=== PATIENT | female | born 1960 | race Caucasian/White ===

== ENCOUNTER → 2017-03-26 | Outpatient (CLI) | payer OTHER | LOC: M RAD 10:48 | DX: Z12.31 Encounter for screening mammogram for malignant neoplasm of breast (principal) | CPT/HCPCS: 77067 ==

== ENCOUNTER → 2017-04-06 | Outpatient (REF) | payer OTHER, MEDICAID ==
[2017-04-06 14:15] LABS: TOTAL 25(OH) VITAMIN D 23.7 NG/ML (30.0-100.0)
[2017-04-06 14:26] LABS: BASO # 0.1 10^3/uL (0.0-0.2); BASO % 1.1 % (0.0-1.0); EOS # 0.2 10^3/uL (0.0-0.50); EOS % 2.9 % (0.0-3.0); HEMATOCRIT 42.6 % (36.0-47.0); HEMOGLOBIN 14.3 g/dl (12.0-16.0); IMMATURE GRANULOCYTE % 0.2 % (0-3.0); LYMPH # 1.9 10^3/uL (1.5-4.5); LYMPH % 35.1 % (24.0-44.0); MEAN CORPUSCULAR HEMOGLOBIN 31.3 pg (27.0-33.0); MEAN CORPUSCULAR HGB CONC 33.6 g/dl (32.0-36.5); MEAN CORPUSCULAR VOLUME 93.2 fl (80.0-96.0); MONO # 0.4 10^3/uL (0.0-0.8); MONO % 7.6 % (0.0-5.0); NEUTROPHILS # 2.9 10^3/uL (1.8-7.7); NEUTROPHILS % 53.1 % (36.0-66.0); PLATELET COUNT, AUTOMATED 333 10^3/uL (150-450); RED BLOOD COUNT 4.57 10^6/uL (4.00-5.40); RED CELL DISTRIBUTION WIDTH 12.8 % (11.5-14.5); WHITE BLOOD COUNT 5.5 10^3/uL (4.0-10.0)
[2017-04-06 14:27] LABS: ALBUMIN/GLOBULIN RATIO 1.14 (1.00-1.93); ALKALINE PHOSPHATASE 87 U/L (45-117); ALT/SGPT 38 U/L (12-78); ANION GAP 8 MEQ/L (8-16); AST/SGOT 21 U/L (7-37); BILIRUBIN,TOTAL 0.5 MG/DL (0.2-1.0); BLOOD UREA NITROGEN 12 MG/DL (7-18); CALCIUM LEVEL 9.1 MG/DL (8.5-10.1); CARBON DIOXIDE LEVEL 29 MEQ/L (21-32); CHLORIDE LEVEL 107 MEQ/L (98-107); CHOLESTEROL LEVEL 278 MG/DL (<200); CREATININE FOR GFR 0.71 MG/DL (0.55-1.30); GLOMERULAR FILTRATION RATE > 60.0 (>51); GLUCOSE, FASTING 83 MG/DL (70-100); HDL CHOLESTEROL 50 MG/DL (>40); LDL CHOLESTEROL 197.2 MG/DL (<100); NON-HDL-C 228 MG/DL; POTASSIUM SERUM 4.3 MEQ/L (3.5-5.1); SODIUM LEVEL 144 MEQ/L (136-145); TOTAL PROTEIN 7.5 GM/DL (6.4-8.2); TRIGLYCERIDES LEVEL 154 MG/DL (<150)
[2017-04-06 14:53] LABS: HEPATITIS C VIRUS ABY INDEX 0.1 INDEX (<0.8)
[2017-04-06 14:54] LABS: HIV 1&2 SCREEN CENTAUR NEGATIVE (NEGATIVE)
[2017-04-08 08:07] LABS: LEAD BLOOD ADULT 1 ug/dL (0-19)
== END ==
LOC: M LAB REF 13:21
DX: Z13.9 Encounter for screening, unspecified (principal); E78.5 Hyperlipidemia, unspecified; E03.9 Hypothyroidism, unspecified; K59.09 Other constipation
CPT/HCPCS: 83655

== ENCOUNTER → 2017-04-23 | Outpatient (REF) | payer OTHER, MEDICAID ==
[2017-04-23 19:06] LABS: ERYTHROCYTE SEDIMENTATION RATE 21 mm/hr (0-30)
== END ==
LOC: M LAB REF 17:27
DX: M79.7 Fibromyalgia (principal)
CPT/HCPCS: 85652

== ENCOUNTER → 2017-05-01 | Outpatient (REF) | payer OTHER ==
[2017-05-01 18:08] LABS: TOTAL T3 100.5 NG/DL (60.0-181.0)
[2017-05-01 18:08] LABS: TESTOSTERONE 19 NG/DL (14-76)
[2017-05-01 18:09] LABS: C REACTIVE PROTEIN QUANTITATIV < 0.30 MG/DL (0.00-0.30); FERRITIN 122 NG/ML (8-252); FOLLICLE STIMULATING HORMONE 81.1 mIU/mL; FREE T4 0.96 NG/DL (0.76-1.46); IRON (FE) 96 UG/DL (50-170); LUTEINIZING HORMONE 27.9 mIU/mL
[2017-05-06 08:40] LABS: ESTROGENS TOTAL 43 pg/mL (.)
== END ==
LOC: M LAB REF 16:56
DX: R23.2 Flushing (principal); M79.7 Fibromyalgia; E03.9 Hypothyroidism, unspecified
CPT/HCPCS: 83001

== ENCOUNTER 2017-05-08 06:47 | Day surgery (SDC) | payer OTHER ==
[2017-05-08] MEDS ORDERED: LIDOCAINE 2% INJ 100 MG/5 ML SDV (FOR ANES.) As Ordered (07:04)
[2017-05-08] MEDS ORDERED: PROPOFOL 200 MG/20 ML VIAL As Ordered ×2 (07:04)
[2017-05-08] MEDS: NS 1,000 ML IV (07:15)
== END 2017-05-08 09:40 | disposition home or self-care (01) ==
LOC: M OPP 06:47
DX: Z12.11 Encounter for screening for malignant neoplasm of colon (principal); D12.3 Benign neoplasm of transverse colon; K64.8 Other hemorrhoids; E78.5 Hyperlipidemia, unspecified; E03.9 Hypothyroidism, unspecified; M79.7 Fibromyalgia; J45.909 Unspecified asthma, uncomplicated; R06.83 Snoring; J32.9 Chronic sinusitis, unspecified; H04.129 Dry eye syndrome of unspecified lacrimal gland; Z91.040 Latex allergy status; Z88.2 Allergy status to sulfonamides; Z80.8 Family history of malignant neoplasm of other organs or systems; Z80.42 Family history of malignant neoplasm of prostate; Z80.1 Family history of malignant neoplasm of trachea, bronchus and lung; Z80.0 Family history of malignant neoplasm of digestive organs; Z80.7 Family history of other malignant neoplasms of lymphoid, hematopoietic and related tissues
CPT/HCPCS: 45385

== ENCOUNTER → 2017-05-11 | Outpatient (REF) | payer OTHER ==
[2017-05-11 13:49] LABS: APPEARANCE, URINE CLEAR (CLEAR); BACTERIA, URINE AUTO 1+ (NEGATIVE); BILIRUBIN, URINE AUTO NEGATIVE (NEGATIVE); BLOOD, URINE BLOOD 2+ (NEGATIVE); COLOR, URINE COLORLESS (YELLOW); GLUCOSE, URINE (UA) AUTO NEGATIVE (NEGATIVE); KETONE, URINE AUTO NEGATIVE (NEGATIVE); LEUKOCYTE ESTERASE, URINE AUTO 3+ (NEGATIVE); NITRITE, URINE AUTO NEGATIVE (NEGATIVE); PROTEIN, URINE AUTO NEGATIVE (NEGATIVE); RBC, URINE AUTO 1 /HPF (0-3); SPECIFIC GRAVITY URINE AUTO 1.001 (1.002-1.035); SQUAMOUS EPITHELIAL CELL UR AU 0 /HPF (0-6); UROBILINOGEN, URINE AUTO 0.2 mg/dL (0.0-2.0); WBC, URINE AUTO 3 /HPF (0-3)
== END ==
LOC: M LAB REF 13:18
DX: R30.0 Dysuria (principal)

== ENCOUNTER → 2017-06-12 | Outpatient (REF) | payer OTHER, MEDICARE, MEDICAID ==
[2017-06-12 17:36] LABS: HYALINE CAST, URINE NONE SEEN /lpf (0-1); MICROSCOPIC EXAM PERFORMED; SQUAMOUS EPITHELIAL CELL URINE SMALL AMOUNT /hpf (SMALL AMT)
[2017-06-12 17:37] LABS: BACTERIA, URINE LARGE AMOUNT
== END ==
LOC: M SMT 16:55
DX: N20.0 Calculus of kidney (principal)
CPT/HCPCS: 81015

== ENCOUNTER → 2017-06-22 | Outpatient (CLI) | payer OTHER, MEDICAID, MEDICARE | LOC: M RAD 10:30 | DX: N20.0 Calculus of kidney (principal) | CPT/HCPCS: 76856 ==

== ENCOUNTER → 2017-07-16 | Outpatient (CLI) | payer OTHER, MEDICAID | LOC: M RAD 13:17 | DX: M20.099 Other deformity of finger(s), unspecified finger(s) (principal); M79.642 Pain in left hand; M79.641 Pain in right hand | CPT/HCPCS: 73130 ==

== ENCOUNTER → 2017-08-24 | Outpatient (REF) | payer OTHER, MEDICAID ==
[2017-08-24 14:01] LABS: TOTAL 25(OH) VITAMIN D 30.9 NG/ML (30.0-100.0)
[2017-08-24 14:07] LABS: CPK CREATINE PHOSPHOKINASE 462 U/L (26-192)
[2017-08-24 14:07] LABS: MAGNESIUM LEVEL 2.1 MG/DL (1.8-2.4)
[2017-08-25 15:00] LABS: ANTI JO-1 ANTIBODIES <0.2 AI (0.0-0.9)
== END ==
LOC: M LAB REF 13:23
DX: M79.1 Myalgia (principal); E55.9 Vitamin D deficiency, unspecified
CPT/HCPCS: 82550

== ENCOUNTER → 2017-09-15 | Outpatient (CLI) | payer OTHER ==
[~2017-09-15] MED LIST: MOM 30ML SUSPENSION UDC PO
[2017-09-15 14:09] LABS: HEMATOCRIT 42.4 % (36.0-47.0); HEMOGLOBIN 14.2 g/dl (12.0-15.5); MEAN CORPUSCULAR HEMOGLOBIN 32.1 pg (27.0-33.0); MEAN CORPUSCULAR HGB CONC 33.5 g/dl (32.0-36.5); MEAN CORPUSCULAR VOLUME 95.7 fl (80.0-96.0); PLATELET COUNT, AUTOMATED 314 10^3/uL (150-450); RED BLOOD COUNT 4.43 10^6/uL (4.00-5.40); RED CELL DISTRIBUTION WIDTH 12.5 % (11.5-14.5); WHITE BLOOD COUNT 8.1 10^3/uL (4.0-10.0)
[2017-09-15 14:16] LABS: AMORPHOUS SEDIMENT LARGE (NEGATIVE); BACTERIA, URINE AUTO 2+ (NEGATIVE); RBC, URINE AUTO 13 /HPF (0-3); SQUAMOUS EPITHELIAL CELL UR AU 0 /HPF (0-6); WBC, URINE AUTO 0 /HPF (0-3)
[2017-09-15 14:39] LABS: ANION GAP 6 MEQ/L (8-16); BLOOD UREA NITROGEN 17 MG/DL (7-18); CALCIUM LEVEL 9.2 MG/DL (8.5-10.1); CARBON DIOXIDE LEVEL 33 MEQ/L (21-32); CHLORIDE LEVEL 108 MEQ/L (98-107); CREATININE FOR GFR 0.85 MG/DL (0.55-1.30); GLOMERULAR FILTRATION RATE > 60.0 (>51); GLUCOSE, FASTING 97 MG/DL (70-100); POTASSIUM SERUM 4.1 MEQ/L (3.5-5.1); SODIUM LEVEL 147 MEQ/L (136-145)
== END ==
LOC: M LAB 13:28
DX: Z01.812 Encounter for preprocedural laboratory examination (principal)
CPT/HCPCS: 80048

== ENCOUNTER 2017-09-23 06:08 | Day surgery (SDC) | payer OTHER ==
[~2017-09-23 06:08] MED LIST changes: +LR 1,000 ML IV; -MOM 30ML SUSPENSION UDC PO
[2017-09-23] MEDS ORDERED: ceFAZolin 2 GM/D5W 50 ML IV BAG (J0690 PER 500MG) As Ordered (06:41)
[2017-09-23] MEDS ORDERED: PROPOFOL 200 MG/20 ML VIAL As Ordered (06:51)
[2017-09-23] MEDS ORDERED: ROCURONIUM BROMIDE 50 MG/5 ML VIAL As Ordered (06:51)
[2017-09-23] MEDS ORDERED: LIDOCAINE 2% INJ 100 MG/5 ML SDV (FOR ANES.) As Ordered (06:51)
[2017-09-23] MEDS ORDERED: fentaNYL 100 MCG/2 ML INJECTION (J3010) As Ordered (06:56)
[2017-09-23] MEDS ORDERED: MIDAZOLAM INJ 2 MG/2 ML VIAL (J2250) As Ordered (07:23)
[2017-09-23] MEDS ORDERED: fentaNYL 250 MCG/5 ML INJECTION (J3010) As Ordered (07:48)
[2017-09-23] MEDS ORDERED: ONDANSETRON 4MG/2ML VIAL (J2405) As Ordered ×2 (07:58)
[2017-09-23] MEDS ORDERED: dexameTHASONE 4 MG/ML 1ML VIAL (J1100) As Ordered ×2 (07:58)
[2017-09-23] MEDS ORDERED: SUGAMMADEX SODIUM 500 MG/5 ML VIAL (BRIDION) As Ordered (07:59)
[2017-09-23] MEDS: BACITRACIN PWD 50,000 UNITS VIAL As Ordered (08:40)
[2017-09-23] MEDS: METHYLENE BLUE 0.5% (5MG/ML) 10 ML AMP (PROVAYBLUE)(Q9968 PER 1MG) As Ordered (09:14)
[2017-09-23] MEDS: BUPIVACAINE/EPIN 0.25% 30 ML VIAL As Ordered (10:15)
[2017-09-23] MEDS: BACITRACIN OINT 30GM As Ordered (10:43)
[2017-09-23] MEDS ORDERED: NAPROXEN 250 MG TAB PO (10:45)
[2017-09-23] MEDS ORDERED: ACETAMINOPHEN 650MG ER TAB (TYLENOL ARTHRITIS) PO (10:45)
[2017-09-23] MEDS ORDERED: PERCOCET 5MG/325MG TAB PO (11:15)
[2017-09-23] MEDS: LR 1,000 ML IV (11:15)
[2017-09-23] MEDS ORDERED: HYDROMORPHONE HCL 0.5 MG/ 0.5 ML SYRINGE (J1170 PER 1) IV (11:15)
[2017-09-23] MEDS ORDERED: ONDANSETRON 4MG/2ML VIAL (J2405) IV (11:15)
[2017-09-23] MEDS ORDERED: fentaNYL 100 MCG/2 ML INJECTION (J3010) IV (11:15)
[2017-09-23] MEDS: ASCORBIC ACID 500 MG TAB PO ×2 (13:46→20:37)
[2017-09-23] MEDS: VITAMIN D 1,000 INTERNATIONAL UNITS TABLET PO ×2 (13:47→20:37)
[2017-09-23] MEDS: CALCIUM/VITAMIN D 500 MG TAB PO (13:47)
[2017-09-23] MEDS: PERCOCET 5MG/325MG TAB PO ×2 (13:50→20:39)
[2017-09-23] MEDS: CIPROFLOXACIN 250 MG TAB PO (18:40)
[2017-09-23] MEDS: ATORVASTATIN 20 MG TAB PO (20:37)
[2017-09-23] MEDS: FLUTICASONE PROP 0.05% NASAL SPRAY 16 GM (FLONASE) (20:39)
[2017-09-24] MEDS: CIPROFLOXACIN 250 MG TAB PO (05:21)
[2017-09-24 06:18] LABS: HEMOGLOBIN 12.5 g/dl (12.0-15.5); MEAN CORPUSCULAR HEMOGLOBIN 31.4 pg (27.0-33.0); MEAN CORPUSCULAR HGB CONC 33.8 g/dl (32.0-36.5); PLATELET COUNT, AUTOMATED 288 10^3/uL (150-450); RED BLOOD COUNT 3.98 10^6/uL (4.00-5.40); RED CELL DISTRIBUTION WIDTH 12.6 % (11.5-14.5); WHITE BLOOD COUNT 17.1 10^3/uL (4.0-10.0)
[2017-09-24 06:40] LABS: ANION GAP 6 MEQ/L (8-16); BLOOD UREA NITROGEN 10 MG/DL (7-18); CALCIUM LEVEL 8.5 MG/DL (8.5-10.1); CARBON DIOXIDE LEVEL 30 MEQ/L (21-32); CHLORIDE LEVEL 107 MEQ/L (98-107); GLOMERULAR FILTRATION RATE > 60.0 (>51); GLUCOSE, FASTING 108 MG/DL (70-100); SODIUM LEVEL 143 MEQ/L (136-145)
[2017-09-24] MEDS: DULoxetine 30 MG CAP (CYMBALTA) PO (08:31)
[2017-09-24] MEDS: CALCIUM/VITAMIN D 500 MG TAB PO (08:31)
[2017-09-24] MEDS: VITAMIN D 1,000 INTERNATIONAL UNITS TABLET PO (08:31)
[2017-09-24] MEDS: MONTELUKAST 10 MG TAB PO (08:31)
[2017-09-24] MEDS: ASCORBIC ACID 500 MG TAB PO (08:31)
[2017-09-24] MEDS: POLYVINYL ALCOHOL OPHTH SOLN 15 ML(LIQUITEARS) OU (08:32)
[2017-09-24] MEDS: PERCOCET 5MG/325MG TAB PO (08:32)
[2017-09-24] MEDS ORDERED: PERCOCET 5MG/325MG TAB PO (09:30)
== END 2017-09-24 12:10 | disposition home or self-care (01) ==
LOC: M SDC 06:08 → M MSPAV 12:53
DX: N81.3 Complete uterovaginal prolapse (principal); N39.46 Mixed incontinence; D30.3 Benign neoplasm of bladder; N76.5 Ulceration of vagina; E78.00 Pure hypercholesterolemia, unspecified; E03.9 Hypothyroidism, unspecified; M79.7 Fibromyalgia; F41.9 Anxiety disorder, unspecified; F32.9 Major depressive disorder, single episode, unspecified; R06.83 Snoring; J32.9 Chronic sinusitis, unspecified; Z88.2 Allergy status to sulfonamides; Z91.040 Latex allergy status; Z79.899 Other long term (current) drug therapy; Z90.710 Acquired absence of both cervix and uterus; Z87.440 Personal history of urinary (tract) infections; Z98.51 Tubal ligation status
CPT/HCPCS: 57260

== ENCOUNTER → 2017-10-30 | Outpatient (REF) | payer OTHER, MEDICAID ==
[2017-10-30 18:43] LABS: ALBUMIN 3.8 GM/DL (3.2-5.2); ALBUMIN/GLOBULIN RATIO 1.09 (1.00-1.93); ALKALINE PHOSPHATASE 101 U/L (45-117); ALT/SGPT 43 U/L (12-78); ANION GAP 6 MEQ/L (8-16); AST/SGOT 25 U/L (7-37); BILIRUBIN,TOTAL 0.5 MG/DL (0.2-1.0); BLOOD UREA NITROGEN 15 MG/DL (7-18); CALCIUM LEVEL 9.7 MG/DL (8.5-10.1); CARBON DIOXIDE LEVEL 31 MEQ/L (21-32); CHLORIDE LEVEL 105 MEQ/L (98-107); CPK CREATINE PHOSPHOKINASE 385 U/L (26-192); GLOMERULAR FILTRATION RATE > 60.0 (>51); GLUCOSE, FASTING 86 MG/DL (70-100); POTASSIUM SERUM 4.9 MEQ/L (3.5-5.1); SODIUM LEVEL 142 MEQ/L (136-145); TOTAL PROTEIN 7.3 GM/DL (6.4-8.2)
[2017-10-30 18:44] LABS: CREATININE,RANDOM URINE 30.7 MG/DL; TOTAL PROTEIN,RANDOM URINE 7.1 MG/DL (0.0-12.0)
[2017-10-30 18:52] LABS: BASO # 0.1 10^3/uL (0.0-0.2); BASO % 0.8 % (0.0-1.0); EOS # 0.2 10^3/uL (0.0-0.50); EOS % 2.5 % (0.0-3.0); HEMATOCRIT 42.8 % (36.0-47.0); IMMATURE GRANULOCYTE % 0.1 % (0-3.0); LYMPH # 2.2 10^3/uL (1.5-4.5); LYMPH % 29.2 % (24.0-44.0); MEAN CORPUSCULAR HEMOGLOBIN 31.5 pg (27.0-33.0); MEAN CORPUSCULAR HGB CONC 32.7 g/dl (32.0-36.5); MEAN CORPUSCULAR VOLUME 96.4 fl (80.0-96.0); MONO # 0.7 10^3/uL (0.0-0.8); MONO % 8.6 % (0.0-5.0); NEUTROPHILS # 4.4 10^3/uL (1.8-7.7); NEUTROPHILS % 58.8 % (36.0-66.0); PLATELET COUNT, AUTOMATED 318 10^3/uL (150-450); RED BLOOD COUNT 4.44 10^6/uL (4.00-5.40); RED CELL DISTRIBUTION WIDTH 12.6 % (11.5-14.5); WHITE BLOOD COUNT 7.5 10^3/uL (4.0-10.0)
[2017-10-30 18:58] LABS: AMORPHOUS SEDIMENT SMALL (NEGATIVE); APPEARANCE, URINE CLOUDY (CLEAR); BACTERIA, URINE AUTO NEGATIVE (NEGATIVE); BILIRUBIN, URINE AUTO NEGATIVE (NEGATIVE); BLOOD, URINE BLOOD NEGATIVE (NEGATIVE); COLOR, URINE YELLOW (YELLOW); GLUCOSE, URINE (UA) AUTO NEGATIVE (NEGATIVE); KETONE, URINE AUTO NEGATIVE (NEGATIVE); LEUKOCYTE ESTERASE, URINE AUTO NEGATIVE (NEGATIVE); NITRITE, URINE AUTO NEGATIVE (NEGATIVE); PROTEIN, URINE AUTO NEGATIVE (NEGATIVE); RBC, URINE AUTO 2 /HPF (0-3); SPECIFIC GRAVITY URINE AUTO 1.009 (1.002-1.035); SQUAMOUS EPITHELIAL CELL UR AU 0 /HPF (0-6); UROBILINOGEN, URINE AUTO 0.2 mg/dL (0.0-2.0); WBC, URINE AUTO 1 /HPF (0-3)
[2017-11-04 00:06] LABS: ANA (HEP2) Negative (.); ANTI DOUBLE STRAND-DNA AB 1 IU/mL (0-9); RNP ANTIBODY < 0.2 AI (0.0-0.9); SMITHS ANTIBODY < 0.2 AI (0.0-0.9); SSA SJOGRENS A <0.2 AI (0.0-0.9); SSB SJOGRENS B <0.2 AI (0.0-0.9)
== END ==
LOC: M SFHCLERA 12:05
DX: M25.50 Pain in unspecified joint (principal)

== ENCOUNTER → 2017-11-13 | Outpatient (REF) ==
[2017-11-13 15:19] LABS: RUBELLA IgG QUALITATIVE >500.0 (IMMUNE)
[2017-11-17 08:29] LABS: RUBEOLA IgG ANTIBODY 52.7 AU/mL (Immune >29.9)
== END ==
LOC: M LAB 14:01
DX: Z00.00 Encounter for general adult medical examination without abnormal findings (principal)

== ENCOUNTER 2017-11-17 07:56 | Day surgery (SDC) | payer OTHER ==
[~2017-11-17 07:56] MED LIST changes: +LIDOCAINE 1% SDV 5 ML VIAL SQ
[2017-11-17] MEDS ORDERED: MIDAZOLAM INJ 2 MG/2 ML VIAL (J2250) As Ordered (08:08)
[2017-11-17] MEDS ORDERED: fentaNYL 250 MCG/5 ML INJECTION (J3010) As Ordered (08:08)
[2017-11-17] MEDS ORDERED: ROCURONIUM BROMIDE 50 MG/5 ML VIAL As Ordered (08:08)
[2017-11-17] MEDS ORDERED: PROPOFOL 200 MG/20 ML VIAL As Ordered (08:08)
[2017-11-17] MEDS ORDERED: LIDOCAINE 2% INJ 100 MG/5 ML SDV (FOR ANES.) As Ordered (08:08)
[2017-11-17] MEDS: OXYMETAZOLINE NASAL SPRAY (AFRIN) As Ordered (09:55)
[2017-11-17] MEDS ORDERED: METOCLOPRAMIDE INJ 10MG/2ML VIAL (J2765) As Ordered (10:23)
[2017-11-17] MEDS ORDERED: KETOROLAC 60 MG/2 ML VIAL (J1885) As Ordered (10:23)
[2017-11-17] MEDS ORDERED: dexameTHASONE 4 MG/ML 1ML VIAL (J1100) As Ordered ×2 (10:23)
[2017-11-17] MEDS ORDERED: ONDANSETRON 4MG/2ML VIAL (J2405) As Ordered (10:23)
[2017-11-17] MEDS ORDERED: SUGAMMADEX SODIUM 500 MG/5 ML VIAL (BRIDION) As Ordered (10:39)
[2017-11-17] MEDS: TRIAMCINOLONE ACETONIDE SUSP 40 MG/ML VIAL (J3301) As Ordered (10:41)
[2017-11-17] MEDS ORDERED: PERCOCET 5MG/325MG TAB As Ordered (11:06)
[2017-11-17] MEDS: PERCOCET 5MG/325MG TAB PO (11:10)
[2017-11-17] MEDS ORDERED: LR 1,000 ML IV ×2 (11:15→12:00)
[2017-11-17] MEDS ORDERED: ACETAMINOPH W/CODEINE #3 TAB UD PO (12:00)
[2017-11-17] MEDS ORDERED: fentaNYL 100 MCG/2 ML INJECTION (J3010) IV (12:00)
[2017-11-17] MEDS ORDERED: MORPHINE 10 MG/ML 1ML VIAL (J2270) IV (12:00)
[2017-11-17] MEDS ORDERED: ONDANSETRON 4MG/2ML VIAL (J2405) IV (12:00)
== END 2017-11-17 12:30 | disposition home or self-care (01) ==
LOC: M SDC 07:56
DX: K11.23 Chronic sialoadenitis (principal); E78.5 Hyperlipidemia, unspecified; M79.7 Fibromyalgia; Z91.040 Latex allergy status; Z88.2 Allergy status to sulfonamides; Z79.899 Other long term (current) drug therapy; F32.9 Major depressive disorder, single episode, unspecified
CPT/HCPCS: 42699

== ENCOUNTER → 2017-12-29 | Outpatient (CLI) | payer OTHER ==
[~2017-12-29] MED LIST changes: -LIDOCAINE 1% SDV 5 ML VIAL SQ; -LR 1,000 ML IV; +PROHANCE 279.3MG/ML 15ML VIAL (A9576) As Ordered; +PROHANCE 279.3MG/ML 5ML VIAL (A9576) As Ordered
== END ==
LOC: M RAD 09:26
DX: N94.89 Other specified conditions associated with female genital organs and menstrual cycle (principal); Z90.710 Acquired absence of both cervix and uterus
CPT/HCPCS: A9576

== ENCOUNTER → 2018-03-22 | Outpatient (REF) | payer OTHER ==
[~2018-03-22] MED LIST changes: +ATOR40TA75 PO; +BIOT2500 PO; +CALC600T7 PO; +CIPR-303 PO; +DULO1CAP2 PO; +FLUTISP; +MAPA650T PO; +MIRA3350 PO; +MONT10TA2 PO; +MULTCAP PO; +NAPR-885 PO; +POLYOIN2; +PROBCAP4 PO; -PROHANCE 279.3MG/ML 15ML VIAL (A9576) As Ordered; -PROHANCE 279.3MG/ML 5ML VIAL (A9576) As Ordered; +SINUPOW7; +SYST1SOL OU; +VITA200015 PO; +VITA500T PO
[2018-03-22 19:43] LABS: ALBUMIN 4.1 GM/DL (3.2-5.2); ALT/SGPT 40 U/L (12-78); BASO # 0.1 10^3/uL (0.0-0.2); BASO % 0.7 % (0.0-1.0); BILIRUBIN,TOTAL 0.4 MG/DL (0.2-1.0); BLOOD UREA NITROGEN 18 MG/DL (7-18); CALCIUM LEVEL 9.6 MG/DL (8.5-10.1); CARBON DIOXIDE LEVEL 31 MEQ/L (21-32); CHLORIDE LEVEL 105 MEQ/L (98-107); CHOLESTEROL LEVEL 174 MG/DL (<200); CHOLESTEROL RISK RATIO 2.949 (<5); CREATININE FOR GFR 0.81 MG/DL (0.55-1.30); EOS # 0.2 10^3/uL (0.0-0.50); EOS % 1.6 % (0.0-3.0); GLOMERULAR FILTRATION RATE > 60.0 (>51); GLUCOSE, FASTING 112 MG/DL (70-100); HDL CHOLESTEROL 59 MG/DL (>40); HEMATOCRIT 41.9 % (36.0-47.0); LDL CHOLESTEROL 96 MG/DL (<100); LYMPH # 2.5 10^3/uL (1.5-4.5); LYMPH % 26.3 % (24.0-44.0); MAGNESIUM LEVEL 2.2 MG/DL (1.8-2.4); MEAN CORPUSCULAR HGB CONC 33.4 g/dl (32.0-36.5); MEAN CORPUSCULAR VOLUME 95.9 fl (80.0-96.0); MONO # 0.6 10^3/uL (0.0-0.8); MONO % 6.5 % (0.0-5.0); NEUTROPHILS # 6.2 10^3/uL (1.8-7.7); NEUTROPHILS % 64.6 % (36.0-66.0); NON-HDL-C 115 MG/DL; PLATELET COUNT, AUTOMATED 338 10^3/uL (150-450); POTASSIUM SERUM 4.2 MEQ/L (3.5-5.1); RED BLOOD COUNT 4.37 10^6/uL (4.00-5.40); SODIUM LEVEL 143 MEQ/L (136-145); TOTAL 25(OH) VITAMIN D 45.2 NG/ML (30.0-100.0); TOTAL PROTEIN 6.8 GM/DL (6.4-8.2); TRIGLYCERIDES LEVEL 95 MG/DL (<150); WHITE BLOOD COUNT 9.6 10^3/uL (4.0-10.0)
[2018-03-22 20:34] LABS: HEMOGLOBIN A1c 5.4 %
== END ==
LOC: M LAB REF 17:16
PROVIDERS: ATTEND Nurse Practitioner Family
DX: Z13.9 Encounter for screening, unspecified (principal); R03.0 Elevated blood-pressure reading, without diagnosis of hypertension; E55.9 Vitamin D deficiency, unspecified

== ENCOUNTER → 2018-04-01 | Outpatient (REF) | payer OTHER | LOC: M LAB REF 18:25 | PROVIDERS: ATTEND Family Medicine Addiction Medicine | DX: N30.00 Acute cystitis without hematuria (principal) ==

== ENCOUNTER → 2018-04-20 | Outpatient (CLI) | payer OTHER ==
[~2018-04-20] MED LIST changes: +B COCAP4 PO; +CINN500T PO; +D 50CAP PO; +EQL50TAB4 PO; +SALM10002 PO; +SEA KELP PO; +SIME1CAP PO; +TURMCAP PO
--- NOTE | 2018-04-21 07:57 | ECGEPIP ---
Stationary ECG Study [facility] Test Date: 2018-04-20 Pat Name: ALDEN SHEA Department: Room: - Gender: F [employer] Operations Technician: : [id number] Requested By: VINAY Marrufo Order Number: [id number] Reading MD: Carlos Townsend Measurements Intervals [place] Rate: 69 P: 69 SC: 148 QRS: 4 QRSD: 104 T: 8 QT: 379 QTc: 407 Interpretive Statements SINUS RHYTHM Comparison tracing not on file Electronically Signed On 04-21-2018 7:57:14 EST by Carlos Townsend
== END ==
LOC: M EKG 14:52
PROVIDERS: ATTEND Anesthesiology
DX: Z01.810 Encounter for preprocedural cardiovascular examination (principal)

== ENCOUNTER 2018-04-26 10:35 | Day surgery (SDC) | payer OTHER ==
[~2018-04-26] VITALS: Ht 175.3 cm; Wt 95.3 kg
[2018-04-26] MEDS ORDERED: PROPOFOL 200 MG/20 ML VIAL As Ordered ONE (12:09)
[2018-04-26] MEDS ORDERED: LIDOCAINE 2% INJ 100 MG/5 ML SDV (FOR ANES.) As Ordered ONE (12:09)
[2018-04-26] MEDS ORDERED: ROCURONIUM BROMIDE 50 MG/5 ML VIAL As Ordered ONE (12:09)
[2018-04-26] MEDS ORDERED: fentaNYL 100 MCG/2 ML INJECTION (J3010) As Ordered ONE (12:10)
[2018-04-26] MEDS ORDERED: ONDANSETRON 4MG/2ML VIAL (J2405) As Ordered ONE (12:10)
[2018-04-26] MEDS ORDERED: dexameTHASONE 4 MG/ML 1ML VIAL (J1100) As Ordered ONE (12:10)
[2018-04-26] MEDS ORDERED: KETAMINE HCL 200 MG/20 ML VIAL As Ordered ONE (12:11)
[2018-04-26] MEDS ORDERED: BACITRACIN OINT 30GM As Ordered ONE (12:43)
[2018-04-26] MEDS ORDERED: LIDOCAINE W/EPINEPHRINE 1% 20ML VIAL As Ordered ONE (12:43)
[2018-04-26] MEDS ORDERED: SUCCINYLCHOLINE 100 MG/5 ML SYRINGE (J0330) As Ordered ONE (13:19)
[2018-04-26] MEDS ORDERED: LABETALOL HCL 100 MG/20 ML VIAL As Ordered ONE (13:50)
[2018-04-26] MEDS ORDERED: ACETAMINOPH W/CODEINE #3 TAB UD PO PRN (14:15)
[2018-04-26] MEDS ORDERED: NORCO, ANEXSIA 5/325MG TABLET (HYDROcodone/ACETAMINOPHEN) PO PRN (14:15)
[2018-04-26] MEDS ORDERED: ONDANSETRON 4MG/2ML VIAL (J2405) IV PRN (14:15)
[2018-04-26] MEDS ORDERED: fentaNYL 100 MCG/2 ML INJECTION (J3010) IV PRN (14:15)
[2018-04-26] MEDS ORDERED: LR 1,000 ML IV SCH ×2 (14:15)
[2018-04-26 15:30] VITALS: BP 147/70
--- NOTE | 2018-04-28 09:57 | RO ---
DATE OF PROCEDURE: 04/26/2018 PREOPERATIVE DIAGNOSES: Chronic right submandibular sialadenitis. POSTOPERATIVE DIAGNOSES: Chronic right submandibular sialadenitis. OPERATIVE PROCEDURE: Right submandibular gland resection. SURGEON: Dr. Andrew Herzog DIRECTOR GIFT: Nikunj Whitfield. Nikunj cut sutures, held retractors so that I could get visualization, and helped me close the wound. ANESTHESIA: General. DESCRIPTION OF PROCEDURE: Under general anesthesia with the patient intubated and the patient draped in the usual manner, I marked out the edge of the mandible. 2 cm below that, I made an incision, divided skin, subcutaneous tissues, and platysma. I used a Harmonic scalpel. All vessels seen were cauterized with bipolar cautery. I went down to the submandibular gland. I dissected the tissues off the submandibular gland inferiorly, superiorly, then inferiorly, medially, anteriorly, and posteriorly. Vessels seen were divided using a Harmonic scalpel. I did see the lingual nerve, which was retracted out of the way, and then I divided the submandibular duct going up into the gland. The gland was delivered from the wound. The area was checked to make sure there was no bleeding. Bleeding was then controlled with bipolar cautery. A [place] drain was placed in the wound. The wound closed with #4-0 Vicryl, #5-0 nylon. Patient tolerated the procedure well and was extubated and transferred to the recovery room in excellent condition. Less than 20 mL estimated blood loss.
== END 2018-04-26 15:57 | disposition home or self-care (01) ==
LOC: M SDC 10:35
PROVIDERS: ATTEND Otolaryngology
DX: K11.23 Chronic sialoadenitis (principal); K21.9 Gastro-esophageal reflux disease without esophagitis; M79.7 Fibromyalgia; J45.909 Unspecified asthma, uncomplicated; Z88.2 Allergy status to sulfonamides; Z91.040 Latex allergy status; F41.9 Anxiety disorder, unspecified; F32.9 Major depressive disorder, single episode, unspecified; Z79.899 Other long term (current) drug therapy
CPT/HCPCS: 42440; 88305; J0330; J1100; J2405; J3010

== ENCOUNTER → 2018-05-17 | Outpatient (CLI) | payer OTHER ==
--- NOTE | 2018-05-17 13:24 | REPMRS ---
Patient History The patient states she has not had a clinical breast exam in over a year. Family history of prostate cancer at age 50 or over in father. 3D TOMOSYNTHESIS WAS PERFORMED. Digital Mammo Screening Bilat: May 17, 2018 - Exam #: [id number] Bilateral CC and MLO view(s) were taken. Technologist: Makayla Mancia, Technologist Prior study comparison: March 26, 2017, bilateral digital mammo screening bilat performed at [facility]. FINDINGS: There are scattered fibroglandular densities. There has been no change in the appearance of the mammogram from the prior studies. There is a mild amount of residual fibroglandular tissue which is fairly symmetric. There is no interval development of dominant mass, architectural distortion, or clustered microcalcification suggestive of malignancy. Assessment: BI-RADS/ACR category 1 mammogram. Negative Mammogram. Recommendation Routine screening mammogram in 1 year (for women over age 40). This mammogram was interpreted with the aid of an FDA-approved computer-aided dectection system. Electronically Signed By: Tyrone You MD 05/17/18 [id number]
== END ==
LOC: M RAD 12:20
PROVIDERS: ATTEND Nurse Practitioner Family
DX: Z12.31 Encounter for screening mammogram for malignant neoplasm of breast (principal)

== ENCOUNTER 2018-06-09 09:24 | Outpatient (RCR) | payer OTHER ==
[~2018-06-09 09:24] MED LIST changes: -EQL50TAB4 PO; +ZINC1TAB2 PO
== END 2018-06-15 ==
LOC: M PT 09:24
PROVIDERS: ATTEND Specialist
DX: M79.7 Fibromyalgia (principal); N81.3 Complete uterovaginal prolapse

== ENCOUNTER → 2018-06-14 | Outpatient (CLI) | payer OTHER ==
--- NOTE | 2018-06-18 08:16 | SLEEPHOME ---
DATE OF PROCEDURE: 06/14/2018 ORDERED BY: Hali Kim Diagnostic home sleep testing was performed due to concern for the obstructive sleep apnea syndrome in this patient with a history of excessive somnolence. For testing a nocturnal T3 respiratory monitoring device was used. Continuous record was made of pulse, oxygen saturation, airflow, chest, abdominal strain and body position. 9 hours and 59 minutes of data were reviewed. There were 7 hours and 37 minutes marked as time in bed. During the interval marked time in bed there was 71 respiratory events identified of 10 seconds in duration or greater for respiratory event index of 9.3. Baseline pulse rate 58 beats per minute, pulse rate ranged from 45-95. Baseline saturation 92%. Lowest oxygen saturation 81%. Testing was performed in both the supine and nonsupine positions. IMPRESSION: Abnormal home sleep testing with repetitive respiratory events and oxygen desaturations to 81% with a respiratory event index of 9.3 is consistent with the obstructive sleep apnea syndrome. RECOMMENDATIONS: The patient should be encouraged to undergo formal sleep evaluation and in laboratory pressure titration.
== END ==
LOC: M SLEEP HO 06-11 14:50
PROVIDERS: ATTEND Nurse Practitioner Family
DX: R40.0 Somnolence (principal)

== ENCOUNTER 2018-07-14 14:08 | Outpatient (RCR) | payer OTHER | END 2018-07-16 | LOC: M PT 14:08 | PROVIDERS: ATTEND Specialist | DX: M79.7 Fibromyalgia (principal); N81.3 Complete uterovaginal prolapse ==

== ENCOUNTER 2018-08-11 14:00 | Outpatient (RCR) | payer OTHER | END 2018-08-15 | LOC: M PT 14:00 | PROVIDERS: ATTEND Specialist | DX: M79.7 Fibromyalgia (principal); N81.3 Complete uterovaginal prolapse ==

== ENCOUNTER 2018-09-06 08:08 | Outpatient (RCR) | payer OTHER ==
[~2018-09-06 08:08] MED LIST changes: -DULO1CAP2 PO; +DULO1CAP5 PO
== END 2018-09-15 ==
LOC: M PT 08:08
PROVIDERS: ATTEND Otolaryngology
DX: Z51.89 Encounter for other specified aftercare (principal); M79.7 Fibromyalgia; N81.3 Complete uterovaginal prolapse; M26.609 Unspecified temporomandibular joint disorder, unspecified side

== ENCOUNTER → 2018-09-08 | Outpatient (REF) | payer OTHER, MEDICAID ==
[2018-09-08 13:04] LABS: BASO # 0.1 10^3/uL (0.0-0.2); BASO % 1.2 % (0.0-1.0); EOS # 0.2 10^3/uL (0.0-0.50); EOS % 3.7 % (0.0-3.0); HEMATOCRIT 41.9 % (36.0-47.0); HEMOGLOBIN 14.4 g/dl (12.0-15.5); LYMPH % 30.9 % (24.0-44.0); MEAN CORPUSCULAR HGB CONC 34.4 g/dl (32.0-36.5); MEAN CORPUSCULAR VOLUME 95.9 fl (80.0-96.0); MONO # 0.6 10^3/uL (0.0-0.8); MONO % 9.3 % (0.0-5.0); NEUTROPHILS # 3.5 10^3/uL (1.8-7.7); NEUTROPHILS % 54.6 % (36.0-66.0); PLATELET COUNT, AUTOMATED 310 10^3/uL (150-450); RED BLOOD COUNT 4.37 10^6/uL (4.00-5.40); WHITE BLOOD COUNT 6.4 10^3/uL (4.0-10.0)
[2018-09-08 13:20] LABS: CHOLESTEROL LEVEL 166 MG/DL (<200); CHOLESTEROL RISK RATIO 3.132 (<5); FOLATE > 24.0 NG/ML; HDL CHOLESTEROL 53 MG/DL (>40); IRON (FE) 98 UG/DL (50-170); LDL CHOLESTEROL 97 MG/DL (<100); NON-HDL-C 113 MG/DL; TOTAL 25(OH) VITAMIN D 50.2 NG/ML (30.0-100.0); TRIGLYCERIDES LEVEL 80 MG/DL (<150); VITAMIN B12 LEVEL 1313 PG/ML
== END ==
LOC: M LAB REF 12:26
PROVIDERS: ATTEND Nurse Practitioner Family
DX: E78.5 Hyperlipidemia, unspecified (principal); R03.0 Elevated blood-pressure reading, without diagnosis of hypertension